=== PATIENT | male | born 1970 ===

== ENCOUNTER 2020-12-16 14:24 | Outpatient (REF) | payer OTHER, SELFPAY | END 2020-12-16 14:25 | disposition home or self-care (01) | LOC: HO.LAB 14:24 | PROVIDERS: Visit Provider Internal Medicine | DX: Z20.822 Contact with and (suspected) exposure to COVID-19 (principal) | CPT/HCPCS: 36415; C9803; U0003; U0005 ==

== ENCOUNTER 2021-09-25 19:21 | Outpatient (REF) | payer OTHER, SELFPAY ==
--- NOTE | ~2021-09-25 | MR_ITS ---
EXAMINATION: MR CERVICAL SPINE WITHOUT CONTRAST CLINICAL INFORMATION: 50-year-old with complaints of hand pain. Evaluate for stenosis, with bilateral mid to lower cervical nerve root impingement. COMPARISON: None TECHNIQUE: MRI of the cervical spine was obtained using routine sequences without contrast. FINDINGS: Alignment: The cervical spine is anatomically aligned. Lordotic curvature is maintained. Craniocervical Junction/C1-C2 Articulations: Intact and aligned. Visualized Intracranial Structures: Within normal limits. Vertebral Bodies: Normal height. Disc Spaces and Endplates: There is minor anterior marginal endplate spurring at C5-C6, with associated yiwc-yn-bdziefcc disc space height loss. Remaining intervertebral disc space heights are well maintained without significant spondylosis. Bone Marrow: Minimal type I degenerative marrow signal change seen along the endplates at C5-C6. Otherwise, bone marrow signal intensity is within normal limits. C2-C3: No disc herniation and no significant DJD, canal or neural foraminal stenosis. C3-C4: Minor left paramedian disc-osteophyte complex with mild flattening of the dural sac on the left without cord impingement or significant canal stenosis. There is uncovertebral spurring on the left with minor facet spurring and jiec-xq-bmhdnoht left-sided neural foraminal stenosis. C4-C5: Tiny central disc protrusion with minimal indentation of the ventral thecal sac noted without cord impingement or canal stenosis. There is minor uncinate process spurring bilaterally and minor facet spurring with mild bilateral neural foraminal stenosis. C5-C6: Broad-based disc protrusion asymmetric to the right with posterolateral disc-osteophyte complex and mild flattening of the dural sac with slight narrowing of the right lateral recess without significant central spinal canal stenosis. There is uncovertebral spurring bilaterally and facet hypertrophic change bilaterally with severe right-sided and moderate left-sided neural foraminal stenosis. C6-C7: Posterolateral disc-osteophyte complex asymmetric to the left with mild flattening of the dural sac without cord impingement or significant canal stenosis. There is uncovertebral spurring bilaterally and mild left-sided facet hypertrophic change, with lxrwhfzs-zb-xhjeuw left-sided and moderate right-sided neural foraminal stenosis. C7-T1: No disc herniation. Mild facet hypertrophic degenerative change bilaterally without significant canal or neural foraminal stenosis. The cervical and visualized upper thoracic spinal cord is normal in morphology, caliber and signal intensity. MR/MR cervical spine wo con IMPRESSION: 1. Normal spinal alignment. 2. Discogenic degenerative changes and mild spondylosis at C5-C6. 3. Multilevel posterior disc-osteophyte complexes and small disc protrusions, as described above, with no significant central spinal canal stenosis. There is mild narrowing of the left lateral recess at C6-C7 and mild narrowing of the right lateral recess at C5-C6. 4. Multilevel bilateral uncovertebral and facet degenerative change, with multilevel bilateral bony neural foraminal stenosis, most apparent on the right at C5-C6 and, to a lesser degree, on the left at C5-C6 and on the left at C6-C7.
== END 2021-09-25 19:22 | disposition home or self-care (01) ==
LOC: HO.MRI 19:21
PROVIDERS: Visit Provider Psychiatry & Neurology Neurology
DX: M54.12 Radiculopathy, cervical region (principal)
CPT/HCPCS: 72141

== ENCOUNTER 2021-10-27 14:35 | Outpatient (REF) | payer OTHER, SELFPAY ==
[2021-10-27 16:12] LABS: COVID-19 Test Negative (Negative); IDNOW Serial# 16C4AD1C
== END 2021-10-27 14:36 | disposition home or self-care (01) ==
LOC: HO.LAB 14:35
PROVIDERS: Visit Provider Internal Medicine
DX: Z20.822 Contact with and (suspected) exposure to COVID-19 (principal)
CPT/HCPCS: 36415; 87635; C9803

== ENCOUNTER → 2022-03-11 08:22 | Outpatient (RCR) | payer OTHER, SELFPAY | END | disposition home or self-care (01) | LOC: HO.PTCHIC 08-08 13:05 | PROVIDERS: PCP Internal Medicine; Visit Provider Student in an Organized Health Care Education/Training Program | DX: M25.562 Pain in left knee (principal); M25.561 Pain in right knee | CPT/HCPCS: 97110 ==

== ENCOUNTER 2022-11-23 12:08 | Outpatient (REF) | payer OTHER, SELFPAY ==
--- NOTE | ~2022-11-23 | XR_ITS ---
EXAMINATION: XR CHEST CLINICAL INFORMATION: Pleurodynia COMPARISON: 04/01/2017 TECHNIQUE: 2 views of the chest were obtained. FINDINGS: Lungs are clear. No focal consolidation or mass. Normal pulmonary vascularity. No pleural effusion or pneumothorax. Normal heart size. No acute osseous abnormality. XR/XR chest 2V IMPRESSION: No acute pulmonary disease.
[2022-11-23 14:12] LABS: Hematocrit 47.6 % (42.0-52.0); Hemoglobin 16.6 g/dl (14.0-18.0); Mean Corpuscular HGB Conc 34.9 g/dl (31.0-36.0); Mean Corpuscular Hemoglobin 31.6 pg (27.0-33.0); Mean Corpuscular Volume 90.5 fL (80.0-98.0); Mean Platelet Volume 9.1 fL (9.4-12.4); Platelet Count 199 X10*3/uL (160-400); Red Blood Count 5.26 X10*6/uL (4.60-5.80); Red Cell Distribution Width 12.2 % (11.0-16.0); White Blood Count 5.9 X10*3/uL (4.8-10.8)
[2022-11-23 14:19] LABS: Anion Gap 14 (12-20); Blood Urea Nitrogen 16 mg/dL (9-16); Calcium 9.5 mg/dL (8.4-10.2); Carbon Dioxide 27 mmol/L (22-29); Chloride 107 mmol/L (96-108); Estimated Glomerular Filt Rate > 60; Glucose Random 89 mg/dL (60-115); Potassium 4.5 mmol/L (3.3-5.1); Sodium 143 mmol/L (135-145)
== END 2022-11-23 12:09 | disposition home or self-care (01) ==
LOC: HO.HMGCX 12:08
PROVIDERS: PCP Internal Medicine; Visit Provider Emergency Medicine
DX: R10.9 Unspecified abdominal pain (principal); R07.81 Pleurodynia; R06.02 Shortness of breath; R53.83 Other fatigue
CPT/HCPCS: 36415; 71046; 80048; 84484; 85027

== ENCOUNTER 2023-04-23 09:01 | Outpatient (REF) | payer OTHER, SELFPAY ==
[2023-04-23 11:24] LABS: MANUAL DIFF FLAG NO
[2023-04-23 11:31] LABS: Appearance Urine Clear; Color Urine Yellow; Glucose Urine UA Negative (Negative); Leukocyte Esterase Urine Negative (Negative); Nitrite Urine Negative (Negative); PH 7.5 (5.0-9.0); Specific Gravity - Urine <= 1.005 (1.005-1.025); Urine Blood Negative (Negative); Urine Ketones Negative (Negative); Urine Protein Negative (Neg-Trace)
[2023-04-23 11:36] LABS: Basophils Percent Auto 0.4 % (0-2); Eosinophils Absolute Auto 0.1 X10*3/uL (0.0-0.4); Eosinophils Percent Auto 2.4 % (0-4); Hematocrit 44.7 % (42.0-52.0); Hemoglobin 16.4 g/dl (14.0-18.0); Imm Gran Abs Auto 0.01 X10*3/uL (0.00-0.03); Imm Gran Pct Auto 0.2 % (0.0-0.4); Lymphocytes Absolute Auto 1.1 X10*3/uL (1.2-4.9); Lymphocytes Percent Auto 24.6 % (20-40); Mean Corpuscular HGB Conc 36.7 g/dl (31.0-36.0); Mean Corpuscular Hemoglobin 32.9 pg (27.0-33.0); Mean Corpuscular Volume 89.6 fL (80.0-98.0); Mean Platelet Volume 9.5 fL (9.4-12.4); Monocytes Absolute Auto 0.4 X10*3/uL (0.1-1.2); Monocytes Percent Auto 8.7 % (2-11); Neutrophils Absolute Auto 2.9 x10*3/uL (2.0-8.3); Neutrophils Percent Auto 63.7 % (45-73); Platelet Count 178 X10*3/uL (160-400); Red Blood Count 4.99 X10*6/uL (4.60-5.80); Red Cell Distribution Width 12.2 % (11.0-16.0); White Blood Count 4.6 X10*3/uL (4.8-10.8)
[2023-04-23 12:03] LABS: Prostate Specific Antigen Scr 1.98 ng/mL (<0.05-4.0)
[2023-04-23 13:28] LABS: Alanine Aminotransferase 18 U/L (0-40); Alkaline Phosphatase 81 U/L (39-117); Anion Gap 13 (12-20); Aspartate Amino Transferase 18 U/L (5-37); Bilirubin Total 0.9 mg/dL (0.0-1.0); Blood Urea Nitrogen 12 mg/dL (9-16); Calcium 9.5 mg/dL (8.4-10.2); Carbon Dioxide 24 mmol/L (22-29); Chloride 108 mmol/L (96-108); Cholesterol 121 mg/dL; Estimated Glomerular Filt Rate > 60; Glucose Fasting 91 mg/dL (60-99); HDL Cholesterol 36 mg/dL; LDL Cholesterol Calculated 75 mg/dl; Potassium 3.7 mmol/L (3.3-5.1); Sodium 141 mmol/L (135-145); Total Protein 6.7 g/dL (6.5-8.0); Triglycerides 53 mg/dL
[2023-04-23 13:33] LABS: TSH reflex Free T4 0.88 uIU/mL (0.32-4.0); Vitamin D 25-OH Total 38.6 ng/mL (>30)
== END 2023-04-23 09:02 | disposition home or self-care (01) ==
LOC: HO.HMGCLDS 09:01
PROVIDERS: PCP Internal Medicine; Visit Provider Internal Medicine
DX: Z00.00 Encounter for general adult medical examination without abnormal findings (principal); Z12.5 Encounter for screening for malignant neoplasm of prostate; I10 Essential (primary) hypertension; E78.00 Pure hypercholesterolemia, unspecified; R30.0 Dysuria; E55.9 Vitamin D deficiency, unspecified
CPT/HCPCS: 36415; 80053; 80061; 81003; 82306; 84153; 84443; 85025

== ENCOUNTER 2023-04-27 15:18 | Outpatient (REF) | payer OTHER, SELFPAY ==
--- NOTE | ~2023-04-27 | XR_ITS ---
EXAMINATION: XR KNEE, LEFT CLINICAL INFORMATION: Pain in left knee COMPARISON: X-rays of the left knee July 2020 TECHNIQUE: Four views of the left knee. FINDINGS: Bone and joints normal. Persistent area of ossification posterior and lateral to the proximal fibula compatible with heterotopic ossification unchanged No effusion. XR/XR knee LT 4V IMPRESSION: 1. No acute abnormality. 2. Heterotopic ossification unchanged.
== END 2023-04-27 15:19 | disposition home or self-care (01) ==
LOC: HO.XRAY 15:18
PROVIDERS: PCP Internal Medicine; Visit Provider Internal Medicine
DX: M25.562 Pain in left knee (principal)
CPT/HCPCS: 73564

== ENCOUNTER 2023-06-19 12:44 | Outpatient (AMB) | payer OTHER, SELFPAY ==
--- NOTE | 2023-06-19 14:08 | MHC.OFFWIV ---
Intake Vital Signs 06/19/23 14:10 Height 5 ft 8 in BP 132/72 Blood Pressure Location Lt brachial Position Sitting Pulse 82 Pulse Source Pulse Oximeter Temp 97.9 F Temp Source Temporal Artery Scan Pulse Oximetry (%) 98 Intake Visit Reasons: EST/medication questions/[phone] Intake Note: pt is here for refill on medication Patient Tobacco Use Status: Former Tobacco user Allergies amoxicillin Allergy (Unknown, Verified 06/19/23 14:09) rash pollen extracts [POLLEN] Allergy (Unknown, Verified 06/19/23 14:09) RESPIRATORY HPI EST/medication questions/[phone] HPI Details Patient is a 52-year-old male who comes to the walk-in clinic requesting new prescription for his clonazepam. He sees psych provider who writes him for 1 mg of clonazepam twice a day, however he reports that his pharmacy is not able to fill this due to a shortage and requests a new prescription written, as it is a controlled substance. He takes this for apparent severe anxiety, and has history of bipolar depression. FORMERLY [facility] Medical History Bipolar depression Dyslipidemia Dyspnea Knee pain, bilateral Obesity (BMI 30-39.9) Obstructive sleep apnea Surgical History History of nasal surgery History of prostate surgery Status post phlebectomy Family History Father Medical history unknown Mother ALS (amyotrophic lateral sclerosis) Sister No problems noted. Social History Housing: Apartment Alcohol intake: former Patient Tobacco Use Status: Former Tobacco user e-Cigarette/Vaping Use: Never Used Second Hand Smoke Exposure: Yes service: No Current occupational status: disabled Cognitive needs: No Hearing needs: No Vision needs: No Review of Systems Const All systems reviewed & are unremarkable except as noted in HPI and below Physical Exam Vital Signs: Last Vital Signs Temp 97.9 F 06/19/23 14:10 Pulse 82 06/19/23 14:10 BP 132/72 06/19/23 14:10 Pulse Ox 98 06/19/23 14:10 Const General: cooperative, healthy appearing, comfortable, no acute distress, alert, awake, Physically active, anxious and well groomed; No diaphoretic, ill appearing, intoxicated appearing, poor hygiene or tired appearing Nutritional Appearance: average body habitus Orientation/consciousness: patient oriented x3 Limitations: no limitations Resp Effort & Inspection: normal respiratory effort Skin Other: Good color, warm and dry Neuro General: patient oriented x3 Psych Appearance: grossly normal Mental Status: mental status grossly normal Speech and movement: Normal speech and movement present Affect: normal affect Attitude: cooperative Thought process: Normal thought process present Insight: Good insight present (Psych) Judgement: Good judgement present (Psych) Assessment & Plan Assessment & Plan (1) Anxiety: Code(s): F41.9 - Anxiety disorder, unspecified Plan: Discussed with patient that I can do a short term fill of his prescription as after reviewing his profile in prescription management program, it has been a month since his last fill. I also reviewed his last primary care note with Dr. Crump which was 2 months ago, and he has this dosing as current and recommended to continue. Therefore I agreed to put in a 2 week refill for the patient of clonazepam 0.5mg BID as needed for severe anxiety. Medications: New clonazepam 1 mg (2 x 0.5 mg) PO BID 2 weeks 56 tabs 0RF Coding Level of Care Code Est Pt Level 3 (93792) Diagnoses Anxiety F41.9
[2023-06-19 14:10] VITALS: BP 132/72; PULSE 82; TEMP 36.6; O2SAT 98
== END 2023-06-19 15:04 | disposition home or self-care (01) ==
PROVIDERS: PCP Internal Medicine; Visit Provider Physician Assistant Medical
DX: F41.9 Anxiety disorder, unspecified (principal)
CPT/HCPCS: 99213

== ENCOUNTER 2024-04-28 13:35 | Outpatient (AMB) | payer OTHER, SELFPAY ==
[2024-04-28 13:41] VITALS: BP 140/76; PULSE 87; O2SAT 98; BMI 40.1
--- NOTE | 2024-04-28 13:41 | A.OFFPC_ITS ---
Vital Signs 04/28/24 13:41 Height 5 ft 8 in Weight 264 lb 0.2 oz BMI 40.1 BP 140/76 H Blood Pressure Location Lt brachial Position Sitting Pulse 87 Pulse Source Pulse Oximeter Pulse Oximetry (%) 98 Oxygen Delivery Method Room Air Intake Visit Reasons: Annual Exam Intake Note: Patient is here today for a physical. 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: No Was dental information given to patient?: Patient has dentist HPI Annual Exam HPI Details Patient comes in today for his annual physical examination States that he feels okay He denies any headaches or dizziness Denies any chest pains, no increased SOB No nausea/vomiting, no abdominal pain No change in bowel habits noted He denies any acute urinary symptoms He has no follow up labs done recently He has declined going for a screening colonoscopy in the past and continues to decline referral to get one done - states that he has reservations about the procedure itself as well as its accuracy FORMERLY [facility] Medical History (Updated 04/28/24 @ 14:58 by Nithin Crump MD) Morbid obesity with BMI of 40.0-44.9, adult Cervical spondylosis Dyspnea Knee pain, bilateral Obesity (BMI 30-39.9) Bipolar depression Obstructive sleep apnea Dyslipidemia Surgical History Status post phlebectomy History of nasal surgery History of prostate surgery Family History Father Medical history unknown Mother ALS (amyotrophic lateral sclerosis) Sister No problems noted. Social History Housing: Apartment Alcohol intake: former Patient Tobacco Use Status: Former Tobacco user e-Cigarette/Vaping Use: Never Used Second Hand Smoke Exposure: Yes service: No Current occupational status: disabled Cognitive needs: No Hearing needs: No Vision needs: No Questionnaire PHQ-9 Over the last 2 weeks, how often have you been bothered by any of the following problems? 1. Little interest or pleasure in doing things: not at all 2. Feeling down, depressed, or hopeless: not at all 3. Trouble falling or staying asleep, or sleeping too much: not at all 4. Feeling tired or having little energy: not at all 5. Poor appetite or overeating: not at all 6. Feeling bad about yourself - or that you are a failure or have let yourself or your family down: not at all 7. Trouble concentrating on things, such as reading the newspaper or watching television: not at all 8. Moving or speaking so slowly that other people could have noticed. Or the opposite - being so fidgety or restless that you have been moving around a lot more than usual: not at all 9. Thoughts that you would be better off or of hurting yourself in some way: not at all Total score: 0 Depression Screening Interpretation: Negative Depression Screening Done: Yes 42853 - PHQ-9 Billing: Yes Source: Developed by Drs. James Jalloh, Francine Landeros, Kaz Parker and colleagues, with an educational hannah from [email or web address] Thrive Questionnaire Date Thrive assessed: 04/28/24 I am a: Patient What is your living situation today?: I have a steady place to live Within the past 12 months, did the food you bought not last and you didn't have the money to get more?: Never true Within the past 12 months, did you worry whether your food would run out before you got money to buy more?: Never true Do you have trouble paying for medicines?: No Do you have trouble getting transportation to medical appointments?: No Do you have trouble paying your heating and electricity bill?: No Do you have trouble taking care of your child, family member or friend?: No Do you have trouble with day-to-day activities such as bathing, preparing meals, shopping, managing finances, etc.?: No Are you currently unemployed and looking for a job?: No Are you interested in more education?: No Currently or been in a relationship where the following occur: no concerns reported THRIVE Score: 0 AUDIT C Alcohol Use Questionnaire (AUDIT-C) 1. How often do you have a drink containing alcohol?: Never 3. How often do you have six or more drinks on one occasion?: Never Total Score: 0 Score Reviewed/Action Taken: Yes MAGALY-7 AMB Questionnaire MAGALY-7 Date MAGALY - 7 assessed: 04/28/24 Feeling nervous, anxious, or on edge: 0 = Not at all Not being able to stop or control worryin = Not at all Worrying too much about different things: 0 = Not at all Trouble relaxin = Not at all Being so restless that it is hard to sit still: 0 = Not at all Becoming easily annoyed or irritable: 0 = Not at all Feeling afraid as if something awful might happen: 0 = Not at all Total MAGALY-7 score (0-4 normal; 5-9 mild; 10-14 moderate; 15-21 severe): 0 Source: Developed by Drs. James Jalloh, Francine Landeros, Kaz Parker and colleagues, with an educational hannah from [email or web address] Review of Systems Const Denies chills, Denies fatigue, Denies fever(s), Denies headache(s), Denies malaise and Denies weakness Eyes Denies blurry vision, Denies change in vision, Denies irritation and Denies itchy eyes ENT Denies dysphagia, Denies dizziness, Denies otalgia, Denies headache(s), Denies nasal congestion, Denies neck pain, Denies odynophagia and Denies sore throat Card Denies chest pain, Denies rapid heart rate, Denies irregular heart rhythm, Denies palpitations and Reports dyspnea on exertion (mild) Resp Denies chest congestion, Denies cough, Reports dyspnea on exertion (mild) and Denies wheezing GI Denies abdominal pain, Denies bloating, Denies constipation, Denies dysphagia, Denies heartburn, Denies diarrhea, Denies nausea, Denies odynophagia and Denies vomiting Denies hematuria, Denies difficulty urinating, Denies dysuria, Denies urinary frequency and Denies urinary urgency Musc Denies back pain, Denies arthralgias, Denies joint swelling, Denies muscle weakness and Denies neck pain Skin/Breast Denies change in pigmentation, Denies lesions, Denies rash and Denies unusual bruising Neuro Denies dizziness, Denies headache(s), Denies paresthesias and Denies weakness Endo Denies fatigue and Denies palpitations Aller/Immun Denies itchy eyes and Denies wheezing Physical exam (Primary Care) Vital Signs: Last Vital Signs Pulse 87 04/28/24 13:41 BP 140/76 H 04/28/24 13:41 Pulse Ox 98 04/28/24 13:41 Oxygen Delivery Method Room Air 04/28/24 13:41 BMI result Body Mass Index 40.1 Tobacco/Smoking Status: Tobacco use Status Tobacco use date assessed 04/28/24 04/28/24 13:42 Patient Tobacco Use Status Former Tobacco user 04/28/24 13:42 e-Cigarette/Vaping Use Never Used 04/28/24 13:42 PHQ-9: PHQ-9 Score PHQ-9: Total score 0 04/28/24 14:49 Depression Screening Interpretation: Negative Thrive Assessment: Date of Thrive Assessment Date Thrive assessed 04/28/24 04/28/24 13:42 Currently or been in a relationship where the following occur: no concerns reported Const General: no acute distress, alert and awake Orientation/consciousness: patient oriented x3 HENMT Head: Yes normocephalic and Yes atraumatic Ears: external ears normal, TM's normal bilaterally and EAC's normal General nose exam: No nasal discharge present Face and sinus: Yes normal facial exam and Yes sinuses nontender Teeth and gingiva: dentition normal Throat: Yes posterior oropharynx normal and Yes tonsils normal (no TP congestion) Eyes Eyelids: Yes eyelids normal Conjunctivae: conjunctivae normal Pupils: Equal, round and reactive pupils present EOM: EOMs intact bilaterally Neck Neck: Yes no lymphadenopathy and Yes supple Thyroid: Thyroid normal Resp Auscultation: clear to auscultation bilaterally, no rales and no wheezes Cardio Rate: regular rate Rhythm: regular rhythm Heart sounds: no murmurs GI Palpation (GI): Soft to palpation, nontender and No hepatosplenomegaly present Auscultation: normal bowel sounds General: Yes no CVA tenderness Back/Spine/Pelvis Back: no CVA tenderness Thoracic/Lumbar Spine: thoracic and lumbar spine normal to inspection Skin Lesions: no lesions Rashes: no rashes Neuro General: patient oriented x3, moves all extremities, no focal motor deficits and CN's II-XI intact bilaterally Cranial nerves: Yes Equal, round and reactive pupils present Cognition (Neuro): normal cognition Gait exam (Neuro): Normal gait present Extrem General: Yes no clubbing, cyanosis or edema Assessment and Plan Assessment & Plan (1) Annual physical exam: Code(s): Z00.00 - Encounter for general adult medical examination without abnormal findings Plan: Check labs (2) Cervical spondylosis: Code(s): M47.812 - Spondylosis without myelopathy or radiculopathy, cervical region Plan: Cervical spine MRI done in 09/2021 revealed (+) multilevel degenerative disc disease with facet joint arthropathy and mild to moderate foraminal narrowing at C5-C6 and C6-C7 levels Patient states that he has been able to manage his neck pain so far and does not need to take anything for pain other than OTC pain meds PRN (3) Neuropathy: Code(s): G62.9 - Polyneuropathy, unspecified Plan: Was seen by neurology in May 2022 and advised that his symptoms are likely related to his cervical spine issues - has cervical spondylosis Cervical spine MRI done in 09/2021 revealed (+) multilevel degenerative disc disease with facet joint arthropathy and mild to moderate foraminal narrowing at C5-C6 and C6-C7 levels EMG and NCV of the upper extremities done back on 08/04/2021 revealed 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, with normal EMG in the right C5-T1 innervated muscles Follow up with neurology as scheduled (4) Dyspnea on exertion: Code(s): R06.09 - Other forms of dyspnea Plan: Is most likely multifactorial, including related to his weight as well as his DARRYL, which he has decided not to treat with CPAP States that his SOB/MYERS have improved somewhat over the past few months EKG done at the walk-in clinic a few months ago was normal, chest x-rays came out normal and his recent labs done showed no acute or concerning issues If symptoms persist or progress, can send him for echocardiogram for further evaluation but advised that he presently has no signs of fluid or volume overload on physical exam and echo will most likely also come out normal Patient states that he is continuing to work on his weight and is hoping that his symptoms will improve with some weight loss (5) Obstructive sleep apnea: Code(s): G47.33 - Obstructive sleep apnea (adult) (pediatric) Plan: Home sleep study done a few years ago showed (+) mild DARRYL and lowest oxygen level at night was at 87% Auto-CPAP trial at home was recommended but patient decided not to pursue this - wanted to try losing weight and have this reassessed later on when he is able to get his weight down significantly (6) Bipolar depression: Code(s): F31.9 - Bipolar disorder, unspecified Plan: Continue Seroquel 200 mg BID, Lamictal, 200 mg BID, Clonazepam 1 mg BID and Hydroxyzine 25 mg PRN Follow up with psychiatry as scheduled (7) Morbid obesity with BMI of 40.0-44.9, adult: Code(s): E66.01 - Morbid (severe) obesity due to excess calories; Z68.41 - Body mass index [BMI] 40.0-44.9, adult Plan: Reinforced diet/exercise as tolerated/lose weight (8) Colon cancer screening: Code(s): Z12.11 - Encounter for screening for malignant neoplasm of colon Plan: Patient again declines offer to refer him to GI for screening colonoscopy BUT agrees to doing Cologuard testing if it is approved by his insurance - Cologuard testing ordered again Plan Follow up in 6 months Orders: Orders Comprehensive [place]. Panel Fast 04/28/24 E78.00 - Pure hypercholesterolemia, unspecified, Z00.00 - Encounter for general adult medical examination without abnormal findings Vitamin D 25-OH Total 04/28/24 E55.9 - Vitamin D deficiency, unspecified, Z 00.00 - Encounter for general adult medical examination without abnormal findings Prostate Specific Antigen Scr 04/28/24 Z00.00 - Encounter for general adult medical examination without abnormal findings Complete Blood Count Auto Diff 04/28/24 D64.9 - Anemia, unspecified, Z00.00 - Encounter for general adult medical examination without abnormal findings Lipid Panel 04/28/24 E78.00 - Pure hypercholesterolemia, unspecified, Z00.00 - Encounter for general adult medical examination without abnormal findings TSH reflex Free T4 04/28/24 E78.00 - Pure hypercholesterolemia, unspecified, Z00.00 - Encounter for general adult medical examination without abnormal findings UA CC w/rflx Micro + Cult 04/28/24 R30.0 - Dysuria, Z00.00 - Encounter for general adult medical examination without abnormal findings Referrals Cologuard Test Z12.11 - Encounter for screening for malignant neoplasm of colon, Z12.12 - Encounter for screening for malignant neoplasm of rectum Coding Level of Care Code Est Pt Prev Care 40-64y(09501) Diagnoses Annual physical exam Z00.00 Cervical spondylosis M47.812 Neuropathy G62.9 Dyspnea on exertion R06.09 Obstructive sleep apnea G47.33 Bipolar depression F31.9 Morbid obesity with BMI of 40.0-44.9, adult E66.01; Z68.41 Colon cancer screening Z12.11
== END 2024-04-28 15:03 | disposition home or self-care (01) ==
PROVIDERS: PCP Internal Medicine; Visit Provider Internal Medicine
DX: Z00.00 Encounter for general adult medical examination without abnormal findings (principal); F31.9 Bipolar disorder, unspecified; E66.01 Morbid (severe) obesity due to excess calories; Z68.41 Body mass index [BMI] 40.0-44.9, adult; M47.812 Spondylosis without myelopathy or radiculopathy, cervical region; G62.9 Polyneuropathy, unspecified; R06.09 Other forms of dyspnea; G47.33 Obstructive sleep apnea (adult) (pediatric); Z12.11 Encounter for screening for malignant neoplasm of colon
CPT/HCPCS: 99396

== ENCOUNTER 2024-08-22 11:17 | Outpatient (REF) | payer OTHER, SELFPAY ==
--- NOTE | ~2024-08-22 | XR_ITS ---
EXAMINATION: XR CHEST 2 VIEWS CLINICAL INFORMATION: Other specified respiratory disorders J98.8. COMPARISON: XR Chest 11/23/2022 TECHNIQUE: 2 views of the chest were obtained. FINDINGS: No significant abnormality is noted involving the heart, lungs, mediastinum, bony thorax or soft tissues. XR/XR chest 2V IMPRESSION: Unremarkable examination. Electronically signed by: Lee Limon MD 10/24/2024 09:43 AM [facility] [place]
== END 2024-08-22 11:18 | disposition home or self-care (01) ==
LOC: HO.XRAY 11:17
PROVIDERS: PCP Internal Medicine; Visit Provider Internal Medicine
DX: J98.8 Other specified respiratory disorders (principal)
CPT/HCPCS: 71046

== ENCOUNTER 2024-09-04 11:12 | Outpatient (AMB) | payer OTHER, SELFPAY ==
--- NOTE | 2024-09-04 12:04 | MHC.OFFWIV ---
Intake Vital Signs 09/04/24 12:14 Height 5 ft 8 in Weight 270 lb BMI 41.0 BP 140/90 H Blood Pressure Location Rt brachial Position Sitting Pulse 98 Pulse Source Pulse Oximeter Temp 97.8 F Temp Source Oral Pulse Oximetry (%) 97 Oxygen Delivery Method Room Air Intake Visit Reasons: EP weird taste in the mouth, stomach pain [phone] Intake Note: Patient here for weird taste in mouth (metallic) and stomach pain that has been present for about 3 weeks. Patient Tobacco Use Status: Former Tobacco user Allergies amoxicillin Allergy (Unknown, Verified 09/04/24 12:05) rash pollen extracts [POLLEN] Allergy (Unknown, Verified 09/04/24 12:05) RESPIRATORY Do you need a note to return to daycare/school/sports/work: No HPI EP weird taste in the mouth, stomach pain [phone] HPI Details This note is constructed using voice recognition software. While every effort has been made to ensure accuracy, rotary filter operator errors may have been included. The patient is a 53 year old male who presents to the clinic today with metallic taste in his mouth for the past 3-4 weeks. He notes that he has been seen in the emergency room twice, and they have focused primarily in on his respiratory status and have perform chest x-rays without identifying source. He denies fever, chills, cough, shortness of breath, changes in his stool pattern. He reports that he has gained approximately 50 lb in the last year. [facility] Medical History (Updated 04/28/24 @ 14:58 by Nithin Crump MD) Morbid obesity with BMI of 40.0-44.9, adult Cervical spondylosis Dyspnea Knee pain, bilateral Obesity (BMI 30-39.9) Bipolar depression Obstructive sleep apnea Dyslipidemia Surgical History Status post phlebectomy History of nasal surgery History of prostate surgery Family History Father Medical history unknown Mother ALS (amyotrophic lateral sclerosis) Sister No problems noted. Social History Housing: Apartment Alcohol intake: former Patient Tobacco Use Status: Former Tobacco user e-Cigarette/Vaping Use: Never Used Second Hand Smoke Exposure: Yes service: No Current occupational status: disabled Cognitive needs: No Hearing needs: No Vision needs: No Review of Systems Const All systems reviewed & are unremarkable except as noted in HPI and below Physical Exam Vital Signs: Last Vital Signs Temp 97.8 F 09/04/24 12:14 Pulse 98 09/04/24 12:14 BP 140/90 H 09/04/24 12:14 Pulse Ox 97 09/04/24 12:14 Oxygen Delivery Method Room Air 09/04/24 12:14 BMI result Body Mass Index 41.0 Const General: cooperative, healthy appearing, comfortable, no acute distress and well developed Orientation/consciousness: patient oriented x3 Limitations: no limitations HEENT Other: Posterior pharynx with erythema and signs of acid erosion Head: Yes normal to inspection Ears: hearing grossly normal bilaterally, external ears normal and TM's normal bilaterally General nose exam: Normal external nose present and Normal nares present Face and sinus: Yes normal facial exam and Yes sinuses nontender Mouth: Normal oral and palatal mucosa present Neck Neck: Yes normal visual inspection Resp Effort & Inspection: normal respiratory effort and able to speak in complete sentences Auscultation: clear to auscultation bilaterally Cardio Jugular venous distension: no JVD Rate: regular rate Rhythm: regular rhythm Heart sounds: S1 normal heart sound present, S2 normal heart sound present and normal S1 and S2 GI Inspection: Yes normal to inspection Palpation (GI): Soft to palpation and Tenderness to palpation present (GI) in the epigastrum Percussion: Yes normal to percussion Auscultation: normal bowel sounds Skin General skin exam: no rashes or lesions noted Neuro General: patient oriented x3 Psych Appearance: grossly normal Attitude: cooperative Assessment & Plan Assessment & Plan (1) Acid reflux: Code(s): K21.9 - Gastro-esophageal reflux disease without esophagitis Qualifiers: Esophagitis presence: without esophagitis Qualified Code(s): K21.9 - Gastro-esophageal reflux disease without esophagitis Plan: Advised avoidance acidic foods, carbonated beverages, large meals, or anything to eat or drink within 2-3 hours of lying down. Consider trial famotidine for at least 2 weeks, for symptomatic management and then p.r.n. after that. Advised patient to follow up worsening or failure to resolve. Plan See above for full details and plan. Medications: New famotidine Take at dinner time 20 mg PO DAILY 30 tabs 0RF 30 days Coding Level of Care Code Est Pt Level 3 (72413) Diagnoses Gastroesophageal reflux disease without esophagitis K21.9 Esophagitis presence: without esophagitis
[2024-09-04 12:14] VITALS: BP 140/90; PULSE 98; TEMP 36.6; O2SAT 97; BMI 41.0
== END 2024-09-04 12:59 | disposition home or self-care (01) ==
PROVIDERS: PCP Internal Medicine; Visit Provider Registered Nurse
DX: K21.9 Gastro-esophageal reflux disease without esophagitis (principal)

== ENCOUNTER → 2024-09-04 11:12 | Outpatient (BNVA) | payer OTHER, SELFPAY | PROVIDERS: PCP Internal Medicine; Visit Provider Registered Nurse | DX: K21.9 Gastro-esophageal reflux disease without esophagitis (principal) | CPT/HCPCS: 99212 ==

== ENCOUNTER 2024-09-19 10:50 | Outpatient (AMB) | payer OTHER, SELFPAY ==
[2024-09-19 10:59] VITALS: BP 136/84; PULSE 84; O2SAT 99; BMI 41.8
--- NOTE | 2024-09-19 10:59 | MHC.PC.OV ---
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 Television Required: No Accompanied by: Self / Same As Patient Allergies amoxicillin Allergy (Unknown, Verified 09/19/24 11:30) rash pollen extracts [POLLEN] Allergy (Unknown, Verified 09/19/24 11:30) RESPIRATORY Medication List - Last Reconciled 09/19/24 by Nithin Crump MD famotidine 20 mg PO DAILY 30 days lamotrigine 200 mg PO BID quetiapine 200 mg PO BID Tobacco use date assessed: 09/19/24 Dental Screening Dental Screen Date: 09/19/24 Did you have a dental visit in the last 12 months?: No Did you have a dental problem in the last 6 months where you did not have access to dental care?: No Was dental information given to patient?: Patient has dentist HPI Leg pain HPI Details Patient comes in today complaining of some vague symptoms lately that he states are bothering him a lot States that he went to the walk-in clinic last month after he started experiencing some recurrent weird taste in his mouth recently that he can only describe as foamy He was started on a trial of oral Famotidine - states that he took a total of 5 doses of the medication, after which he somehow lost the bottle of med so has not been taking the Rx since States that he could not tell whether the Famotidine helped with his symptoms or not He then went to the ER in [place] ([facility]) - relates that they mary some labs to check for possible exposure to some unspecified chemicals(?) and he was informed that all of his labs came out okay and he was eventually reassured and sent home States that he was not reassured as his symptoms persisted and he feels that he may have had some transference of some unnamed chemicals from his pillows or during some of his daily activities but he continues to remain very vague and cannot really explain what it is he is really worried about He just keeps saying that it's hard to explain and could not provide more details to back up his suspicions or concerns Relates that he has been supposedly breaking out in sweats, experiencing on and off runs of irregular heartbeats, and that his legs are bothering him at times He denies any fever or chills Denies any headaches or dizziness Denies any exertional chest pains or increased shortness of breath No nausea/vomiting, no abdominal pain No change in bowel habits noted [facility] Medical History Morbid obesity with BMI of 40.0-44.9, adult Cervical spondylosis Dyspnea Knee pain, bilateral Obesity (BMI 30-39.9) Bipolar depression Obstructive sleep apnea Dyslipidemia Surgical History Status post phlebectomy History of nasal surgery History of prostate surgery Family History Father Medical history unknown Mother ALS (amyotrophic lateral sclerosis) Sister No problems noted. Social History Housing: Apartment Alcohol intake: former Patient Tobacco Use Status: Former Tobacco user e-Cigarette/Vaping Use: Never Used Second Hand Smoke Exposure: Yes service: No Current occupational status: disabled Cognitive needs: No Hearing needs: No Vision needs: No Questionnaire PHQ-9 Over the last 2 weeks, how often have you been bothered by any of the following problems? 1. Little interest or pleasure in doing things: not at all 2. Feeling down, depressed, or hopeless: not at all 3. Trouble falling or staying asleep, or sleeping too much: not at all 4. Feeling tired or having little energy: not at all 5. Poor appetite or overeating: not at all 6. Feeling bad about yourself - or that you are a failure or have let yourself or your family down: not at all 7. Trouble concentrating on things, such as reading the newspaper or watching television: not at all 8. Moving or speaking so slowly that other people could have noticed. Or the opposite - being so fidgety or restless that you have been moving around a lot more than usual: not at all 9. Thoughts that you would be better off or of hurting yourself in some way: not at all Total score: 0 Depression Screening Interpretation: Negative Depression Screening Done: Yes 19028 - PHQ-9 Billing: Yes Source: Developed by Francine Garcia, Kaz Parker and colleagues, with an educational hannah from [employer]. Thrive Questionnaire Date Thrive assessed: 09/19/24 I am a: Patient What is your living situation today?: I have a steady place to live Within the past 12 months, did the food you bought not last and you didn't have the money to get more?: Never true Within the past 12 months, did you worry whether your food would run out before you got money to buy more?: Never true Do you have trouble paying for medicines?: No Do you have trouble getting transportation to medical appointments?: No Do you have trouble paying your heating and electricity bill?: No Do you have trouble taking care of your child, family member or friend?: No Do you have trouble with day-to-day activities such as bathing, preparing meals, shopping, managing finances, etc.?: No Are you currently unemployed and looking for a job?: No Are you interested in more education?: No Please select the resources that you would like help with: None Currently or been in a relationship where the following occur: No concerns reported THRIVE Score: 0 AUDIT C Alcohol Use Questionnaire (AUDIT-C) 1. How often do you have a drink containing alcohol?: Never 3. How often do you have six or more drinks on one occasion?: Never Total Score: 0 Score Reviewed/Action Taken: Yes MAGALY-7 AMB Questionnaire MAGALY-7 Date MAGALY - 7 assessed: 09/19/24 Feeling nervous, anxious, or on edge: 0 = Not at all Not being able to stop or control worryin = Not at all Worrying too much about different things: 0 = Not at all Trouble relaxin = Not at all Being so restless that it is hard to sit still: 0 = Not at all Becoming easily annoyed or irritable: 0 = Not at all Feeling afraid as if something awful might happen: 0 = Not at all Total MAGALY-7 score (0-4 normal; 5-9 mild; 10-14 moderate; 15-21 severe): 0 Source: Developed by Francine Garcia Kurt Kroenke and colleagues, with an educational hannah from [employer]. Review of Systems Const Reports as per HPI, Denies chills, Denies fatigue, Denies fever(s) and Denies headache(s) ENT Details: as per HPI - has recurrent weird taste in mouth - foamy Denies dysphagia, Denies dizziness, Reports dry mouth (with recurrent weird tastes in his mouth often), Denies otalgia, Denies headache(s), Denies neck pain, Denies odynophagia and Denies sore throat Card Denies chest pain, Reports irregular heart rhythm (on and off, per patient), Denies palpitations and Reports dyspnea on exertion (mild) Resp Denies chest congestion, Denies cough and Reports dyspnea on exertion (mild) GI Denies abdominal pain, Denies constipation, Denies dysphagia, Denies heartburn, Denies diarrhea, Denies nausea, Denies odynophagia and Denies vomiting Denies difficulty urinating, Denies dysuria, Denies urinary frequency and Denies urinary urgency Musc Details: achy legs Denies back pain, Denies arthralgias and Denies neck pain Skin/Breast Denies rash Neuro Denies dizziness, Denies headache(s) and Denies paresthesias Psych Reports anxiety and Reports paranoia Endo Denies fatigue and Denies palpitations Physical exam (Primary Care) Vital Signs: Last Vital Signs Pulse 84 09/19/24 10:59 BP 136/84 09/19/24 10:59 Pulse Ox 99 09/19/24 10:59 Oxygen Delivery Method Room Air 09/19/24 10:59 BMI result Body Mass Index 41.8 Tobacco/Smoking Status: Tobacco use Status Tobacco use date assessed 09/19/24 09/19/24 11:04 Patient Tobacco Use Status Former Tobacco user 09/19/24 11:04 e-Cigarette/Vaping Use Never Used 09/19/24 11:04 PHQ-9: PHQ-9 Score PHQ-9: Total score 0 09/19/24 11:34 Depression Screening Interpretation: Negative Thrive Assessment: Date of Thrive Assessment Date Thrive assessed 09/19/24 09/19/24 11:04 Currently or been in a relationship where the following occur: No concerns reported Const General: no acute distress and alert HENMT Ears: TM's normal bilaterally and EAC's normal Throat: Yes posterior oropharynx normal and Yes tonsils normal (no TP congestion) Neck Neck: Yes no lymphadenopathy and Yes supple Thyroid: Thyroid normal Resp Auscultation: clear to auscultation bilaterally, no rales and no wheezes Cardio Rate: regular rate Rhythm: regular rhythm Heart sounds: no murmurs GI Palpation (GI): Soft to palpation and nontender Auscultation: normal bowel sounds General: Yes no CVA tenderness Back/Spine/Pelvis Back: no CVA tenderness Thoracic/Lumbar Spine: thoracic and lumbar spine normal to inspection Skin Rashes: no rashes Extrem General: Yes no clubbing, cyanosis or edema Office Procedures Flu Questionnaire Does the patient have a severe egg allergy?: No Immunizations Fluarix Triv [id number] (PF) 45 mcg (15 mcg x 3)/0.5 mL IM syringe Performing Provider: Nithin Crump MD [facility] Documented (not given) by: JACKI Murphy on 09/19/24 11:07 Reason Not Given: Received Previously Coding Level of Care Code Est Pt Level 4 (66295) Diagnoses Altered taste R43.2 Additional Codes PHQ-9 - 47613 - PHQ-9 Billing: Yes ([id number]) Assessment & Plan Assessment & Plan (1) Altered taste: Code(s): R43.2 - [facility] Category: Medical Plan: Have advised patient that from his physical examination today, I could not find any positive or pertinent findings that would help explain his described symptoms, which are very vague begin with and do not appear to have any physical basis While it may be possible, it is unlikely that he may be developing some rheumatologic condition or inflammatory/immunologic disease as he has hardly had any symptoms related to these He seems very concerned about the possibility of chemical exposure but the ones he described are quite vague and unlikely Have explained to patient that in the absence of any pertinent findings, we do not really know where to go in terms of testing him, I will go ahead and send him for some screening labs to see what we can come up with and have advised patient that hopefully, something will come up on his labs that will help narrow down what we are looking for Plan Follow up as scheduled next month Orders: Orders TSH reflex Free T4 09/19/24 E78.00 - Pure hypercholesterolemia, unspecified Vitamin D 25-OH Total 09/19/24 E55.9 - Vitamin D deficiency, unspecified Lamotrigine Lamictal 09/19/24 F31.9 - Bipolar disorder, unspecified OLAF Reflex Titer and Pattern 09/19/24 R68.2 - Dry mouth, unspecified Rheumatoid Factor 09/19/24 R68.2 - Dry mouth, unspecified Influenza [id number] Immunization 09/19/24 Z23 - Encounter for immunization Complete Blood Count Auto Diff 09/19/24 D64.9 - Anemia, unspecified Comprehensive [place]. Panel Fast 09/19/24 E78.00 - Pure hypercholesterolemia, unspecified Lipid Panel 09/19/24 E78.00 - Pure hypercholesterolemia, unspecified UA CC w/rflx Micro + Cult 09/19/24 R30.0 - Dysuria C Reactive Protein 09/19/24 R68.2 - Dry mouth, unspecified Complement C3 09/19/24 R68.2 - Dry mouth, unspecified Complement C4 09/19/24 R68.2 - Dry mouth, unspecified SARS COV2 IgG Today R43.2 - [place], Z20.822 - Contact with and (suspected) exposure to COVID-19
== END 2024-09-19 11:46 | disposition home or self-care (01) ==
PROVIDERS: PCP Internal Medicine; Visit Provider Internal Medicine
DX: R43.2 Parageusia (principal)

== ENCOUNTER → 2024-09-19 10:50 | Outpatient (BNVA) | payer OTHER, SELFPAY | PROVIDERS: PCP Internal Medicine; Visit Provider Internal Medicine | DX: R43.2 Parageusia (principal) | CPT/HCPCS: 90471; 96127; 99212 ==

== ENCOUNTER 2024-09-27 09:39 | Outpatient (REF) | payer OTHER, SELFPAY ==
[2024-09-27 13:17] LABS: MANUAL DIFF FLAG NO
[2024-09-27 13:18] LABS: Appearance Urine Clear; Color Urine Yellow; Glucose Urine UA Negative (Negative); Leukocyte Esterase Urine Negative (Negative); Nitrite Urine Negative (Negative); Specific Gravity - Urine <= 1.005 (1.005-1.025); Urine Blood Negative (Negative); Urine Ketones Negative (Negative); Urine Protein Negative (Neg-Trace)
[2024-09-27 13:33] LABS: Basophils Percent Auto 0.4 % (0-2); Eosinophils Absolute Auto 0.2 X10*3/uL (0.0-0.4); Eosinophils Percent Auto 3.4 % (0-4); Hematocrit 44.4 % (42.0-52.0); Hemoglobin 15.8 g/dl (14.0-18.0); Imm Gran Abs Auto 0.01 X10*3/uL (0.00-0.03); Imm Gran Pct Auto 0.2 % (0.0-0.4); Lymphocytes Percent Auto 21.9 % (20-40); Mean Corpuscular HGB Conc 35.6 g/dl (31.0-36.0); Mean Corpuscular Hemoglobin 31.9 pg (27.0-33.0); Mean Corpuscular Volume 89.5 fL (80.0-98.0); Mean Platelet Volume 8.9 fL (9.4-12.4); Monocytes Absolute Auto 0.4 X10*3/uL (0.1-1.2); Monocytes Percent Auto 8.4 % (2-11); Neutrophils Absolute Auto 3.1 x10*3/uL (2.0-8.3); Neutrophils Percent Auto 65.7 % (45-73); Platelet Count 178 X10*3/uL (160-400); Red Blood Count 4.96 X10*6/uL (4.60-5.80); Red Cell Distribution Width 12.8 % (11.0-16.0); White Blood Count 4.7 X10*3/uL (4.8-10.8)
[2024-09-27 13:39] LABS: Rheumatoid Factor < 13.0 IU/mL (<15.0)
[2024-09-27 14:02] LABS: Alanine Aminotransferase 26 U/L (0-40); Albumin Level 4.3 g/dL (3.5-5.0); Alkaline Phosphatase 85 U/L (39-117); Anion Gap 11 (12-20); Aspartate Amino Transferase 30 U/L (5-37); Bilirubin Total 0.6 mg/dL (0.0-1.0); Blood Urea Nitrogen 10 mg/dL (9-16); C Reactive Protein 0.12 mg/dL (< or = 0.50); Carbon Dioxide 26 mmol/L (22-29); Chloride 106 mmol/L (96-108); Cholesterol 132 mg/dL (<200); Estimated Glomerular Filt Rate > 60; Glucose Fasting 97 mg/dL (60-99); HDL Cholesterol 36 mg/dL (>40); LDL Cholesterol Calculated 77 mg/dL (<100); Potassium 3.9 mmol/L (3.3-5.1); Sodium 139 mmol/L (135-145); Total Protein 6.9 g/dL (6.5-8.0); Triglycerides 98 mg/dL (<150)
[2024-09-27 14:04] LABS: TSH reflex Free T4 1.11 uIU/mL (0.32-4.0); Vitamin D 25-OH Total 55.1 ng/mL (>30)
[2024-09-28 19:53] LABS: Complement C3 145 mg/dL (82-185)
[2024-10-02 14:24] LABS: Anti Nuclear Antibody Screen POSITIVE (NEGATIVE)
[2024-10-03 17:54] LABS: Lamotrigine Lamictal 5.3 mcg/mL (2.5-15.0)
== END 2024-09-27 09:40 | disposition home or self-care (01) ==
LOC: HO.HMGCLDS 09:39
PROVIDERS: PCP Internal Medicine; Visit Provider Internal Medicine
DX: E78.00 Pure hypercholesterolemia, unspecified (principal); E55.9 Vitamin D deficiency, unspecified; R68.2 Dry mouth, unspecified; R30.0 Dysuria; F31.9 Bipolar disorder, unspecified; D64.9 Anemia, unspecified
CPT/HCPCS: 36415; 80053; 80061; 80175; 81003; 82306; 84443; 85025; 86038; 86039; 86140; 86160; 86431

== ENCOUNTER 2025-03-01 11:08 | Outpatient (AMB) | payer OTHER, SELFPAY ==
[2025-03-01 11:09] VITALS: BP 120/86; PULSE 90; O2SAT 96; BMI 43.1
--- NOTE | 2025-03-01 11:09 | A.OFFPC_ITS ---
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 Required: No Accompanied by: Self / Same As Patient Allergies amoxicillin Allergy (Unknown, Verified 03/01/25 11:43) rash pollen extracts [POLLEN] Allergy (Unknown, Verified 03/01/25 11:43) RESPIRATORY Medication List - Last Reconciled 03/01/25 by Nithin Crump MD famotidine 20 mg PO DAILY 30 days lamotrigine 200 mg PO BID quetiapine 200 mg PO BID Tobacco use date assessed: 03/01/25 Dental Screening Dental Screen Date: 03/01/25 Did you have a dental visit in the last 12 months?: Yes Did you have a dental problem in the last 6 months where you did not have access to dental care?: No Was dental information given to patient?: Patient has dentist HPI F/U 3 month HPI Details Patient comes in today for his follow up visit States that he feels okay He denies any headaches or dizziness Denies any chest pains, no SOB No nausea/vomiting, no abdominal pain No change in bowel habits noted He does not have any follow up labs done recently; his labs were last done back in September 2024 [facility] Medical History Morbid obesity with BMI of 40.0-44.9, adult Cervical spondylosis Dyspnea Knee pain, bilateral Obesity (BMI 30-39.9) Bipolar depression Obstructive sleep apnea Dyslipidemia Surgical History Status post phlebectomy History of nasal surgery History of prostate surgery Family History Father Medical history unknown Mother ALS (amyotrophic lateral sclerosis) Sister No problems noted. Social History Housing: Apartment Alcohol intake: former Patient Tobacco Use Status: Former Tobacco user e-Cigarette/Vaping Use: Never Used Second Hand Smoke Exposure: Yes service: No Current occupational status: disabled Cognitive needs: No Hearing needs: No Vision needs: No Questionnaire PHQ-9 Over the last 2 weeks, how often have you been bothered by any of the following problems? 1. Little interest or pleasure in doing things: not at all 2. Feeling down, depressed, or hopeless: not at all 3. Trouble falling or staying asleep, or sleeping too much: not at all 4. Feeling tired or having little energy: not at all 5. Poor appetite or overeating: not at all 6. Feeling bad about yourself - or that you are a failure or have let yourself or your family down: not at all 7. Trouble concentrating on things, such as reading the newspaper or watching television: not at all 8. Moving or speaking so slowly that other people could have noticed. Or the opposite - being so fidgety or restless that you have been moving around a lot more than usual: not at all 9. Thoughts that you would be better off or of hurting yourself in some way: not at all Total score: 0 Depression Screening Interpretation: Negative Depression Screening Done: Yes 03745 - PHQ-9 Billing: Yes Source: Developed by Drs. James Jalloh, Francine Landeros, Kaz Parker and colleagues, with an educational hannah from [employer]. Thrive Questionnaire Date Thrive assessed: 03/01/25 I am a: Patient What is your living situation today?: I have a steady place to live Within the past 12 months, did the food you bought not last and you didn't have the money to get more?: Never true Within the past 12 months, did you worry whether your food would run out before you got money to buy more?: Never true Do you have trouble paying for medicines?: No Do you have trouble getting transportation to medical appointments?: No Do you have trouble paying your heating and electricity bill?: No Do you have trouble taking care of your child, family member or friend?: No Do you have trouble with day-to-day activities such as bathing, preparing meals, shopping, managing finances, etc.?: No Are you currently unemployed and looking for a job?: No Are you interested in more education?: No Please select the resources that you would like help with: None Currently or been in a relationship where the following occur: No concerns reported THRIVE Score: 0 AUDIT C Alcohol Use Questionnaire (AUDIT-C) 1. How often do you have a drink containing alcohol?: Never 3. How often do you have six or more drinks on one occasion?: Never Total Score: 0 Score Reviewed/Action Taken: Yes MAGALY-7 AMB Questionnaire MAGALY-7 Date MAGALY - 7 assessed: 03/01/25 Feeling nervous, anxious, or on edge: 0 = Not at all Not being able to stop or control worryin = Not at all Worrying too much about different things: 0 = Not at all Trouble relaxin = Not at all Being so restless that it is hard to sit still: 0 = Not at all Becoming easily annoyed or irritable: 0 = Not at all Feeling afraid as if something awful might happen: 0 = Not at all Total MAGALY-7 score (0-4 normal; 5-9 mild; 10-14 moderate; 15-21 severe): 0 Source: Developed by Drs. James Jalloh, Francine Landeros, Kaz Parker and colleagues, with an educational hannah from [employer]. Review of Systems Const Denies chills, Denies fatigue, Denies fever(s) and Denies headache(s) ENT Denies dysphagia, Denies dizziness, Denies otalgia, Denies headache(s), Denies neck pain, Denies odynophagia and Denies sore throat Card Denies chest pain, Denies palpitations and Denies dyspnea Resp Denies chest congestion, Denies cough and Denies dyspnea GI Denies abdominal pain, Denies constipation, Denies dysphagia, Denies heartburn, Denies diarrhea, Denies nausea, Denies odynophagia and Denies vomiting Denies difficulty urinating, Denies dysuria, Denies nocturia and Denies urinary frequency Musc Denies back pain, Denies arthralgias and Denies neck pain Skin/Breast Denies rash Neuro Denies dizziness and Denies headache(s) Psych Denies anxiety and Denies depression Endo Denies fatigue and Denies palpitations Physical exam (Primary Care) Vital Signs: Last Vital Signs Pulse 90 03/01/25 11:09 BP 120/86 03/01/25 11:09 Pulse Ox 96 03/01/25 11:09 Oxygen Delivery Method Room Air 03/01/25 11:09 BMI result Body Mass Index 43.1 Tobacco/Smoking Status: Tobacco use Status Tobacco use date assessed 03/01/25 03/01/25 11:13 Patient Tobacco Use Status Former Tobacco user 03/01/25 11:13 e-Cigarette/Vaping Use Never Used 03/01/25 11:13 PHQ-9: PHQ-9 Score PHQ-9: Total score 0 03/01/25 11:54 Depression Screening Interpretation: Negative Thrive Assessment: Date of Thrive Assessment Date Thrive assessed 03/01/25 03/01/25 11:13 Currently or been in a relationship where the following occur: No concerns reported Const General: no acute distress and alert HENMT Ears: TM's normal bilaterally and EAC's normal Throat: Yes posterior oropharynx normal and Yes tonsils normal (no TP congestion) Neck Neck: Yes supple and No lymphadenopathy Thyroid: Thyroid normal Resp Auscultation: clear to auscultation bilaterally, no rales and no wheezes Cardio Rate: regular rate Rhythm: regular rhythm Heart sounds: no murmurs GI Palpation (GI): Soft to palpation and nontender Auscultation: normal bowel sounds General: Yes no CVA tenderness Back/Spine/Pelvis Back: no CVA tenderness Thoracic/Lumbar Spine: No lumbar spinal tenderness Skin Rashes: no rashes Extrem General: Yes no clubbing, cyanosis or edema Results Reviewed Results Reviewed: Laboratory Tests 09/27/24 09:47 WBC 4.7 L Hgb 15.8 Hct 44.4 Plt Count 178 Sodium 139 Potassium 3.9 Creatinine 0.75 Estimated GFR > 60 Fasting Glucose 97 Calcium 9.0 AST 30 ALT 26 C-Reactive Protein 0.12 Triglycerides 98 Cholesterol 132 LDL Cholesterol, Calc 77 HDL Cholesterol 36 L 25-OH Vitamin D Total 55.1 TSH 1.11 Ur Specific [place] <= 1.005 Urine Protein Negative Urine Glucose (UA) Negative Urine Blood Negative Urine Nitrite Negative Ur Leukocyte Esterase Negative Lamotrigine 5.3 Rheumatoid Factor < 13.0 OLAF Screen POSITIVE A OLAF Titer 1:160 H Complement C3 145 Complement C4 29 Coding Level of Care Code Est Pt Level 4 (49596) Diagnoses Altered taste R43.2 Dyslipidemia E78.5 Neuropathy G62.9 Obstructive sleep apnea G47.33 Bipolar depression F31.9 Morbid obesity with BMI of 40.0-44.9, adult E66.01; Z68.41 Additional Codes PHQ-9 - 22578 - PHQ-9 Billing: Yes ([id number]) Assessment & Plan Assessment & Plan (1) Altered taste: Code(s): R43.2 - [facility] Category: Medical Plan: Patient's physical examination so far have not yielded any positive or pertinent findings that would help explain his described symptoms, which are very vague begin with and do not appear to have any physical basis We previously did some comprehensive labs but her labs also failed to provide any revealing results Patient was concerned about the possibility of some chemical exposure as the source of his tongue symptoms but the ones he described were quite vague and unlikely Will now refer him to ENT for further evaluation and management (2) Dyslipidemia: Code(s): E78.5 - Hyperlipidemia, unspecified Category: Medical Plan: Results of his labs done back in September 2024 reviewed and discussed with yandel miller His cholesterol numbers are mostly within acceptable range with the exception of his HDL cholesterol, which remains low (3) Neuropathy: Code(s): G62.9 - Polyneuropathy, unspecified Category: Medical Plan: He was seen by neurology in May 2022 and advised that his symptoms are likely related to his cervical spine issues - (+) cervical spondylosis Cervical spine MRI done in 09/2021 revealed (+) multilevel degenerative disc disease with facet joint arthropathy and mild to moderate foraminal narrowing at C5-C6 and C6-C7 levels EMG and NCV of the upper extremities done back on 08/04/2021 revealed 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, with normal EMG in the right C5-T1 innervated muscles Follow up with neurology as scheduled (4) Obstructive sleep apnea: Code(s): G47.33 - Obstructive sleep apnea (adult) (pediatric) Category: Medical Plan: Home sleep study done a couple of years ago showed (+) mild DARRYL and lowest oxygen level at night was at 87% Auto-CPAP trial at home was recommended but patient decided not to pursue this - would like to continue to try to lose weight and have this reassessed later on when he is able to get his weight down significantly (5) Bipolar depression: Code(s): F31.9 - Bipolar disorder, unspecified Category: Medical Plan: Continue Seroquel 200 mg twice a day (morning and at bedtime) and Lamictal Tablet 200 mg BID Follow up with psychiatry as scheduled (6) Morbid obesity with BMI of 40.0-44.9, adult: Code(s): E66.01 - Morbid (severe) obesity due to excess calories; Z68.41 - Body mass index [BMI] 40.0-44.9, adult Category: Medical Plan: Reinforced diet/exercise as tolerated/lose weight Plan Follow up in 6 months Orders: Orders Comprehensive [place]. Panel Fast 6 Months E78.00 - Pure hypercholesterolemia, unspecified Lipid Panel 6 Months E78.00 - Pure hypercholesterolemia, unspecified Vitamin D 25-OH Total 6 Months E55.9 - Vitamin D deficiency, unspecified Complete Blood Count Auto Diff 6 Months D64.9 - Anemia, unspecified TSH reflex Free T4 6 Months E78.00 - Pure hypercholesterolemia, unspecified UA CC w/rflx Micro + Cult 6 Months R30.0 - Dysuria Lamotrigine Lamictal 6 Months F31.9 - Bipolar disorder, unspecified Referrals Ear/Nose/Throat Referral R43.2 - [facility]
--- OUTSIDE RECORDS SUMMARY | 2025-03-01 13:16 | XMS_ITS | Clinical Summary ---
Author Organization [facility] Address [address] [place] [id number] Phone Care Team Providers Care Evening Or Night Nurse Supervisor Name Role Phone Nithin Crump MD Primary Care Provider [phone] Allergies Active Allergy Reactions Criticality Noted Date Comments Tree And Shrub Pollen Sneezing Low 07/26/2024 Social History Tobacco Use Types Packs/Day Years Used Date Smoking Tobacco: Never Assessed Education Answer Date Recorded Are you interested in more education? Not on milady e 03/05/2023 Are you concerned about learning? Not on file 03/05/2023 No 03/05/2023 No 03/05/2023 Digital Access Answer Date Recorded No 04/03/2023 No 04/03/2023 No 04/03/2023 Reliable internet access at home? Not on file 04/03/2023 Device with a working camera? Not on file Intimate Partner Violence Answer Date R ecorded Are you denied basic needs s uch as food, clothing, or medical care? No 07/26/2024 In the past 12 months have y ou been in a relationship with a person who hurts, threatens, or tries to control you? No 07/26/2024 Are you denied basic needs s uch as food, clothing, or medical care? No 07/26/2024 In the past 12 months have y ou been in a relationship with a person who hurts, threatens, or tries to control you? No 07/26/2024 Sex and Gender Information Value Date Recorded Sex Assigned at Not on file Gender Identity Not on file Sexual Orientation Not on file Last Filed Vital Signs Vital Sign Reading Time Taken Comments Blood Pressure 148/84 07/26/2024 6:28 PM EDT Pulse 68 07/26/2024 6:28 PM EDT Temperature 36.7 ??C (98.1 ??F) 07/26/2024 6:28 PM ED T Respiratory Rate 16 07/26/2024 6:28 PM EDT Oxygen Saturation 97% 07/26/2024 6:28 PM EDT Inhaled Oxygen Concentration - - Weight 113.4 kg (250 lb) 07/26/2024 6:28 PM EDT Height 175.3 cm (5' 9 ) 07/26/2024 6:28 PM EDT Body Mass Index 36.92 07/26/2024 6:28 PM EDT Plan of Treatment Health Maintenance Due Date Last Done Comments LIPID PANEL 1970 DEPRESSION SCREENING 1982 SMOKING Hx and SMOKELESS TOBACCO SCREENING 1983 HEPATITIS C SCREENING 1988 HIV ONE-TIME SCREENING (18-6 5 YEARS) 1988 COLOGUARD 2015 COLONOSCOPY 2015 COLORECTAL CANCER SCREENING 2015 FIT TEST 2015 FOBT 2015 SIGMOIDOSCOPY 2015 VIRTUAL COLONOSCOPY 2015 PNEUMOCOCCAL VACCINES (50+ years) (1 of 1 - PCV) 2020 SCREENING FOR DIABETES 09/19/2023 09/19/2020 COVID-19 VACCINE (3 - 2023-2 5 season) 2024 02/23/2021, 02/01/2021 Adult Td,Tdap Booster 08/18/2027 08/18/2017 ZOSTER VACCINES Completed 01/09/2021, 11/06/2020 HEPATITIS A VACCINES Aged Out No long er eligible based on patient's age to complete this topic HIB VACCINES Aged Out No longer eligi ble based on patient's age to complete this topic MENINGOCOCCAL VACCINES (ACWY) Aged Out No longer eligible based on patient's age to complete this topic Medical Devices Not on file Care Teams Evening Or Night Nurse Supervisor Relationship Specialty Start Date End Date Nithin Crump MD [address] [place] [address] [address] [place] [address] PCP - General Internal Medicine 09/19/20 Additional Source Comments The information contained in this document represents components of the legal health record. It is not the complete legal health record.[facility]
== END 2025-03-01 12:22 | disposition home or self-care (01) ==
LOC: HO.HMCH 11:08
PROVIDERS: PCP Internal Medicine; Visit Provider Internal Medicine
DX: R43.2 Parageusia (principal); F31.9 Bipolar disorder, unspecified; E66.01 Morbid (severe) obesity due to excess calories; Z68.41 Body mass index [BMI] 40.0-44.9, adult; E78.5 Hyperlipidemia, unspecified; G62.9 Polyneuropathy, unspecified; G47.33 Obstructive sleep apnea (adult) (pediatric)

== ENCOUNTER → 2025-03-01 11:08 | Outpatient (BNVA) | payer OTHER, SELFPAY | PROVIDERS: PCP Internal Medicine; Visit Provider Internal Medicine | DX: R43.2 Parageusia (principal); G62.9 Polyneuropathy, unspecified; G47.33 Obstructive sleep apnea (adult) (pediatric); F31.9 Bipolar disorder, unspecified; E78.00 Pure hypercholesterolemia, unspecified; E55.9 Vitamin D deficiency, unspecified; D64.9 Anemia, unspecified; E66.01 Morbid (severe) obesity due to excess calories; Z68.41 Body mass index [BMI] 40.0-44.9, adult | CPT/HCPCS: 96127; 99212 ==

== ENCOUNTER 2025-04-12 11:29 | Outpatient (AMB) | payer OTHER, SELFPAY ==
--- NOTE | 2025-04-12 11:48 | MHC.OFFWIV ---
Intake Vital Signs 04/12/25 11:50 04/12/25 12:16 Height 5 ft 8 in Weight 285 lb 4 oz BMI 43.4 BP 124/88 110/70 Blood Pressure Location Lt brachial Lt brachial Position Sitting Sitting Pulse 102 H Pulse Source Pulse Oximeter Temp 98.2 F Temp Source Oral Pulse Oximetry (%) 97 Oxygen Delivery Method Room Air Intake Visit Reasons: EP-back of lt arm tick bite Intake Note: Pt presents to the office today for a tick bite on his left arm. Pt states he noticed the tick on Wednesday and removed it. Patient Tobacco Use Status: Former Tobacco user Allergies amoxicillin Allergy (Unknown, Verified 04/12/25 11:52) rash pollen extracts [POLLEN] Allergy (Unknown, Verified 04/12/25 11:52) RESPIRATORY HPI HPI Comments History of Present Illness Details History of Present Illness - The patient is a 54-year-old male presenting with concerns following a recent tick bite. - The tick was reportedly not engorged at the time of removal, which suggests there was no prolonged attachment, although the exact duration is uncertain. - The patient noted localized redness and tenderness at the site of the bite on the left upper arm, without fevers or joint pain Physical Exam General: Cooperative, healthy appearing, comfortable, no acute distress and well developed Orientation: Patient oriented x3 Limitations: No limitations Head: Normal to inspection Ears: Hearing grossly normal bilaterally Nose: Normal External nose present Face and sinus: Normal facial exam Eyes: Appearance normal, both eyes and all related structures Neck: Normal visual inspection and Yes full ROM Respiratory: Normal respiratory effort and able to speak in complete sentences. Skin: left upper posterior arm with pinpoint scab and surrounding erythema, NOT EM rash, no warmth noted Neuro: Patient oriented x3 Extremities: Normal to inspection [facility] Medical History Morbid obesity with BMI of 40.0-44.9, adult Cervical spondylosis Dyspnea Knee pain, bilateral Obesity (BMI 30-39.9) Bipolar depression Obstructive sleep apnea Dyslipidemia Surgical History Status post phlebectomy History of nasal surgery History of prostate surgery Family History Father Medical history unknown Mother ALS (amyotrophic lateral sclerosis) Sister No problems noted. Social History Housing: Apartment Alcohol intake: former Patient Tobacco Use Status: Former Tobacco user e-Cigarette/Vaping Use: Never Used Second Hand Smoke Exposure: Yes service: No Current occupational status: disabled Cognitive needs: No Hearing needs: No Vision needs: No Review of Systems Const All systems reviewed & are unremarkable except as noted in HPI and below Physical Exam Vital Signs: Last Vital Signs Temp 98.2 F 04/12/25 11:50 Pulse 102 H 04/12/25 11:50 BP 124/88 04/12/25 11:50 Pulse Ox 97 04/12/25 11:50 Oxygen Delivery Method Room Air 04/12/25 11:50 BMI result Body Mass Index 43.4 Assessment & Plan Assessment & Plan (1) Tick bite of left upper arm: Code(s): S40.862A - Insect bite (nonvenomous) of left upper arm, initial encounter; W57.XXXA - Bitten or stung by nonvenomous insect and other nonvenomous arthropods, initial encounter Qualifiers: Encounter type: initial encounter Qualified Code(s): S40.862A - Insect bite (nonvenomous) of left upper arm, initial encounter; W57.XXXA - Bitten or stung by nonvenomous insect and other nonvenomous arthropods, initial encounter Plan: Plan - Initiated prophylactic treatment with a single 200 mg dose of doxycycline in response to the tick bite to decrease the potential risk for Lyme disease. - Patient educated on monitoring for erythema migrans rash and systemic symptoms such as fever and joint pain, with instructions to return if symptoms occur. - Explicitly provided guidance on recognizing and responding to symptoms possibly indicative of Lyme disease. Patient was informed and verbally consented to the use of an ambient scribe for clinic note documentation during this visit. Medications: New doxycycline hyclate 200 mg (2 x 100 mg) PO once 2 tabs 0RF tick bite ppx Coding Level of Care Code Est Pt Level 3 (56600) Diagnoses Tick bite of left upper arm, initial encounter S40.862A; W57.XXXA Encounter type: initial encounter
[2025-04-12 11:50] VITALS: BP 124/88; PULSE 102; TEMP 36.8; O2SAT 97; BMI 43.4
[2025-04-12 12:16] VITALS: BP 110/70
== END 2025-04-12 12:29 | disposition home or self-care (01) ==
PROVIDERS: PCP Internal Medicine; Visit Provider Physician Assistant
DX: S40.862A Insect bite (nonvenomous) of left upper arm, initial encounter (principal); W57.XXXA Bitten or stung by nonvenomous insect and other nonvenomous arthropods, initial encounter

== ENCOUNTER → 2025-04-12 11:29 | Outpatient (BNVA) | payer OTHER, SELFPAY | PROVIDERS: PCP Internal Medicine; Visit Provider Physician Assistant | DX: S40.862A Insect bite (nonvenomous) of left upper arm, initial encounter (principal); W57.XXXA Bitten or stung by nonvenomous insect and other nonvenomous arthropods, initial encounter | CPT/HCPCS: 99212 ==

== ENCOUNTER 2025-05-21 09:32 | Outpatient (REF) | payer OTHER, SELFPAY ==
[2025-05-21 14:42] LABS: Resp Syncy Virus RNA Qual PCR NEGATIVE (Negative); SARS COV2 PCR INHOUSE NEGATIVE (Negative)
== END 2025-05-21 09:33 | disposition home or self-care (01) ==
LOC: HO.LAB 09:32
PROVIDERS: PCP Internal Medicine; Visit Provider Nurse Practitioner Family
DX: J06.9 Acute upper respiratory infection, unspecified (principal); Z13.9 Encounter for screening, unspecified
CPT/HCPCS: 87637; 87880; 99212

== ENCOUNTER 2025-05-21 09:32 | Outpatient (AMB) | payer OTHER, SELFPAY ==
[2025-05-21 09:41] VITALS: BP 102/64; PULSE 75; TEMP 36.7; O2SAT 97; BMI 43.8
--- NOTE | 2025-05-21 09:41 | AM.OFFWIN_ITS ---
Intake Vital Signs 05/21/25 09:41 Height 5 ft 8 in Weight 288 lb BMI 43.8 BP 102/64 Blood Pressure Location Rt brachial Position Sitting Pulse 75 Pulse Source Pulse Oximeter Temp 98.0 F Temp Source Oral Pulse Oximetry (%) 97 Oxygen Delivery Method Room Air Intake Visit Reasons: EP Cough, throat irritation, mucus Intake Note: Patient present cough, congestion, both chest and nasal times 4 days Patient Tobacco Use Status: Former Tobacco user Radiology Services Manager Required: No Allergies amoxicillin Allergy (Unknown, Verified 05/21/25 09:45) rash pollen extracts (POLLEN) Allergy (Unknown, Verified 05/21/25 09:45) RESPIRATORY Do you need a note to return to daycare/school/sports/work: No HPI HPI Comments History of Present Illness Details 54 y/o Male patient who presents to the walk in clinic with c/o Cough and chest congestion for 4 days now. Denies fevers, chills, nausea or vomiting. [facility] Medical History (Updated 05/21/25 @ 10:33 by Sharonda Banerjee NP) Acute respiratory disease Cough Morbid obesity with BMI of 40.0-44.9, adult Cervical spondylosis Dyspnea Knee pain, bilateral Obesity (BMI 30-39.9) Bipolar depression Obstructive sleep apnea Dyslipidemia Surgical History Status post phlebectomy History of nasal surgery History of prostate surgery Family History Father Medical history unknown Mother ALS (amyotrophic lateral sclerosis) Sister No problems noted. Social History Housing: Apartment Alcohol intake: former Patient Tobacco Use Status: Former Tobacco user e-Cigarette/Vaping Use: Never Used Second Hand Smoke Exposure: Yes service: No Current occupational status: disabled Cognitive needs: No Hearing needs: No Vision needs: No Review of Systems Const All systems reviewed & are unremarkable except as noted in HPI and below Physical Exam Vital Signs: Last Vital Signs Temp 98.0 F 05/21/25 09:41 Pulse 75 05/21/25 09:41 BP 102/64 05/21/25 09:41 Pulse Ox 97 05/21/25 09:41 Oxygen Delivery Method Room Air 05/21/25 09:41 BMI result Body Mass Index 43.8 Const General: no acute distress Nutritional Appearance: obese Orientation/consciousness: patient oriented x3 HEENT Head: Yes normocephalic Ears: external ears normal and TM abnormal with fluid behind the TM bilateral General nose exam: Normal external nose present Face and sinus: Yes sinuses nontender Mouth: moist mucous membranes and Abnormal oral and palatal mucosa present white patches Throat: Yes uvula midline Resp Effort & Inspection: normal respiratory effort Cardio Heart sounds: S1 normal heart sound present and S2 normal heart sound present Neuro General: patient oriented x3 Assessment & Plan Assessment & Plan (1) Cough: Code(s): R05.9 - Cough, unspecified Qualifiers: Cough type: acute Qualified Code(s): R05.1 - Acute cough Plan: Ordered SARs Rapid Strep Negative (2) Acute respiratory disease: Code(s): J06.9 - Acute upper respiratory infection, unspecified Plan: Ordered SARs Ordered Allergy medication. Orders: Orders AMB Rapid Strep Screen Today Leonarda Pearson PA-C Z13.9 - Encounter for screening, unspecified SARS-CoV2/FLU/RSV Today Sharonda Banerjee NP J06.9 - Acute upper respiratory infection, unspecified Medications: New cetirizine (Zyrtec) 10 mg PO DAILY 30 tabs 0RF Sharonda Banerjee NP J06.9 - Acute upper respiratory infection, unspecified, R05.1 - Acute cough oxymetazoline 0.05% (Afrin (oxymetazoline)) 2 sprays intranasal Q12H PRN 22 mL 0RF nasal congestion 3 days Sharonda Banerjee NP J06.9 - Acute upper respiratory infection, unspecified, R05.1 - Acute cough benzonatate 100 mg PO BID 60 caps 0RF Sharonda Banerjee NP R05.1 - Acute cough Coding Level of Care Code Est Pt Level 4 (01004) Diagnoses Acute cough R05.1 Cough type: acute Acute respiratory disease J06.9 Time Spent (min) 20
== END 2025-05-21 10:42 | disposition home or self-care (01) ==
PROVIDERS: PCP Internal Medicine; Visit Provider Nurse Practitioner Family
DX: R05.1 Acute cough (principal); J06.9 Acute upper respiratory infection, unspecified; Z13.9 Encounter for screening, unspecified

== ENCOUNTER 2025-08-29 13:37 | Outpatient (AMB) | payer OTHER, SELFPAY ==
[2025-08-29 13:38] VITALS: BP 110/90; PULSE 84; O2SAT 98; BMI 43.7
--- NOTE | 2025-08-29 13:38 | A.OFFPC_ITS ---
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: No Accompanied by: Self / Same As Patient Allergies amoxicillin Allergy (Unknown, Verified 08/29/25 14:17) rash pollen extracts (POLLEN) Allergy (Unknown, Verified 08/29/25 14:17) RESPIRATORY Medication List - Last Reconciled 08/29/25 by Nithin Crump MD lamotrigine 200 mg PO BID quetiapine 200 mg PO BID Tobacco use date assessed: 08/29/25 Dental Screening Dental Screen Date: 08/29/25 Did you have a dental visit in the last 12 months?: Yes Did you have a dental problem in the last 6 months where you did not have access to dental care?: No Was dental information given to patient?: Patient has dentist HPI 6 month f/u HPI Details Patient comes in today for his follow up visit States that he feels okay He denies any headaches or dizziness Denies any chest pains, no increased shortness of breath No nausea/vomiting, no abdominal pain No change in bowel habits noted He has not gotten his follow-up labs done yet - states that he will try to get these done [facility] Medical History (Updated 08/29/25 @ 14:19 by Nithin Crump MD) Cough Morbid obesity with BMI of 40.0-44.9, adult Cervical spondylosis Dyspnea Knee pain, bilateral Obesity (BMI 30-39.9) Bipolar depression Obstructive sleep apnea Dyslipidemia Surgical History Status post phlebectomy History of nasal surgery History of prostate surgery Family History Father Medical history unknown Mother ALS (amyotrophic lateral sclerosis) Sister No problems noted. Social History Housing: Apartment Alcohol intake: former Patient Tobacco Use Status: Former Tobacco user e-Cigarette/Vaping Use: Never Used Second Hand Smoke Exposure: Yes service: No Current occupational status: disabled Cognitive needs: No Hearing needs: No Vision needs: No Questionnaire PHQ-9 Over the last 2 weeks, how often have you been bothered by any of the following problems? 1. Little interest or pleasure in doing things: several days 2. Feeling down, depressed, or hopeless: not at all 3. Trouble falling or staying asleep, or sleeping too much: not at all 4. Feeling tired or having little energy: several days 5. Poor appetite or overeating: several days 6. Feeling bad about yourself - or that you are a failure or have let yourself or your family down: not at all 7. Trouble concentrating on things, such as reading the newspaper or watching television: not at all 8. Moving or speaking so slowly that other people could have noticed. Or the opposite - being so fidgety or restless that you have been moving around a lot more than usual: not at all 9. Thoughts that you would be better off or of hurting yourself in some way: not at all Total score: 3 Depression Screening Interpretation: Positive Depression Screening Follow-up: Existing condition and In treatment Depression Screening Done: Yes 06018 - PHQ-9 Billing: Yes Source: Developed by Drs. James Jalloh, Francine Landeros, Kaz Parker and colleagues, with an educational hannah from [employer]. Thrive Questionnaire Date Thrive assessed: 08/29/25 I am a: Patient What is your living situation today?: I have a steady place to live Within the past 12 months, did the food you bought not last and you didn't have the money to get more?: I choose not to answer this question Within the past 12 months, did you worry whether your food would run out before you got money to buy more?: I choose not to answer this question Do you have trouble paying for medicines?: No Do you have trouble getting transportation to medical appointments?: No Do you have trouble paying your heating and electricity bill?: No Do you have trouble taking care of your child, family member or friend?: No Do you have trouble with day-to-day activities such as bathing, preparing meals, shopping, managing finances, etc.?: No Are you currently unemployed and looking for a job?: I choose not to answer this question Are you interested in more education?: Yes Please select the resources that you would like help with: Housing/Detention, Daily support, Job search/training and Education Currently or been in a relationship where the following occur: I choose not to answer THRIVE Score: 0 AUDIT C Alcohol Use Questionnaire (AUDIT-C) 1. How often do you have a drink containing alcohol?: Never 3. How often do you have six or more drinks on one occasion?: Never Total Score: 0 Score Reviewed/Action Taken: Yes MAGALY-7 AMB Questionnaire MAGALY-7 Date MAGALY - 7 assessed: 03/01/25 Feeling nervous, anxious, or on edge: 0 = Not at all Not being able to stop or control worryin = Not at all Worrying too much about different things: 0 = Not at all Trouble relaxin = Not at all Being so restless that it is hard to sit still: 0 = Not at all Becoming easily annoyed or irritable: 0 = Not at all Feeling afraid as if something awful might happen: 0 = Not at all Total MAGALY-7 score (0-4 normal; 5-9 mild; 10-14 moderate; 15-21 severe): 0 Source: Developed by Drs. James Jalloh, Francine Landeros, Kaz Parker and colleagues, with an educational hannah from [employer]. Review of Systems Const Denies chills, Denies fatigue, Denies fever(s) and Denies headache(s) ENT Denies dysphagia, Denies dizziness, Denies otalgia, Denies headache(s), Denies neck pain, Denies odynophagia and Denies sore throat Card Denies chest pain, Denies palpitations and Denies dyspnea Resp Denies chest congestion, Denies cough and Denies dyspnea GI Denies abdominal pain, Denies constipation, Denies dysphagia, Denies heartburn, Denies diarrhea, Denies nausea, Denies odynophagia and Denies vomiting Denies difficulty urinating, Denies dysuria, Denies nocturia and Denies urinary frequency Musc Denies back pain, Denies arthralgias and Denies neck pain Skin/Breast Denies rash Neuro Denies dizziness and Denies headache(s) Psych Denies anxiety and Denies depression Endo Denies fatigue and Denies palpitations Physical exam (Primary Care) Vital Signs: Last Vital Signs Pulse 84 08/29/25 13:38 BP 128/84 08/29/25 14:23 Pulse Ox 98 08/29/25 13:38 Oxygen Delivery Method Room Air 08/29/25 13:38 BMI result Body Mass Index 43.7 Tobacco/Smoking Status: Tobacco use Status Tobacco use date assessed 08/29/25 08/29/25 13:45 Patient Tobacco Use Status Former Tobacco user 08/29/25 13:45 e-Cigarette/Vaping Use Never Used 08/29/25 13:45 PHQ-9: PHQ-9 Score PHQ-9: Total score 3 08/29/25 14:19 Depression Screening Interpretation: Positive Depression Screening Follow-up: Ex isting condition and In treatment Thrive Assessment: Date of Thrive Assessment Date Thrive assessed 03/01/25 08/29/25 13:45 Currently or been in a relationship where the following occur: I choose not to answer Const General: no acute distress and alert HENMT Ears: TM's normal bilaterally and EAC's normal Throat: Yes posterior oropharynx normal and Yes tonsils normal (no TP congestion) Neck Neck: Yes supple and No lymphadenopathy Thyroid: Thyroid normal Resp Auscultation: clear to auscultation bilaterally, no rales and no wheezes Cardio Rate: regular rate Rhythm: regular rhythm Heart sounds: no murmurs GI Palpation (GI): Soft to palpation and nontender Auscultation: normal bowel sounds General: Yes no CVA tenderness Back/Spine/Pelvis Back: no CVA tenderness Thoracic/Lumbar Spine: No lumbar spinal tenderness Skin Rashes: no rashes Extrem General: Yes no clubbing, cyanosis or edema Coding Level of Care Code Est Pt Level 4 (23442) Diagnoses Dyslipidemia E78.5 Neuropathy G62.9 Obstructive sleep apnea G47.33 Bipolar depression F31.9 Morbid obesity with BMI of 40.0-44.9, adult E66.01; Z68.41 Additional Codes PHQ-9 - 65122 - PHQ-9 Billing: Yes ([id number]) Assessment & Plan Assessment & Plan (1) Dyslipidemia: Code(s): E78.5 - Hyperlipidemia, unspecified Category: Medical Plan: Patient was not able to get his labs done prior to coming in for his appointment today and states that he will try to get these done PRASHANTH Reinforce low-cholesterol diet Will have him recheck his labs and fasting lipids in 6 months for follow-up (2) Neuropathy: Code(s): G62.9 - Polyneuropathy, unspecified Category: Medical Plan: He was seen by neurology in May 2022 and advised that his upper extremity symptoms are likely related to his cervical spine issues - (+) cervical spondylosis Cervical spine MRI done in 09/2021 revealed (+) multilevel degenerative disc disease with facet joint arthropathy and mild to moderate foraminal narrowing at C5-C6 and C6-C7 levels EMG and NCV of the upper extremities done back on 08/04/2021 revealed 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, with normal EMG in the right C5-T1 innervated muscles Follow up with neurology as scheduled (3) Obstructive sleep apnea: Code(s): G47.33 - Obstructive sleep apnea (adult) (pediatric) Category: Medical Plan: Home sleep study done a couple of years ago showed (+) mild DARRYL and lowest oxygen level at night was at 87% Auto-CPAP trial at home was recommended but patient decided not to pursue this - he would like to continue to try to lose weight and have this reassessed later on when he is able to get his weight down significantly (4) Bipolar depression: Code(s): F31.9 - Bipolar disorder, unspecified Category: Medical Plan: Continue Seroquel 200 mg twice a day (morning and at bedtime) and Lamictal Tablet 200 mg BID Follow up with psychiatry as scheduled (5) Morbid obesity with BMI of 40.0-44.9, adult: Code(s): E66.01 - Morbid (severe) obesity due to excess calories; Z68.41 - Body mass index [BMI] 40.0-44.9, adult Category: Medical Plan: Reinforced diet/exercise as tolerated/lose weight Plan To return in 6 months for his next annual physical examination Orders: Orders Comprehensive [place]. Panel Fast 6 Months E78.00 - Pure hypercholesterolemia, uns pecified, Z00.00 - Encounter for general adult medical examination without abnormal findings Lipid Panel 6 Months E78.00 - Pure hypercholesterolemia, unspecified, Z00.00 - Encounter for general adult medical examination without abnormal findings Complete Blood Count Auto Diff 6 Months D64.9 - Anemia, unspecified, Z00.00 - Encounter for general adult medical examination without abnormal findings Prostate Specific Antigen Scr 6 Months Z00.00 - Encounter for general adult medical examination without abnormal findings TSH reflex Free T4 6 Months E78.00 - Pure hypercholesterolemia, unspecified, Z00.00 - Encounter for general adult medical examination without abnormal findings UA CC w/rflx Micro + Cult 6 Months R30.0 - Dysuria, Z00.00 - Encounter for general adult medical examination without abnormal findings Vitamin D 25-OH Total 6 Months E55.9 - Vitamin D deficiency, unspecified, Z00.00 - Encounter for general adult medical examination without abnormal findings
[2025-08-29 14:23] VITALS: BP 128/84
== END 2025-08-29 14:31 | disposition home or self-care (01) ==
LOC: HO.HMCH 13:37
PROVIDERS: PCP Internal Medicine; Visit Provider Internal Medicine
DX: E78.5 Hyperlipidemia, unspecified (principal); F31.9 Bipolar disorder, unspecified; E66.01 Morbid (severe) obesity due to excess calories; Z68.41 Body mass index [BMI] 40.0-44.9, adult; G62.9 Polyneuropathy, unspecified; G47.33 Obstructive sleep apnea (adult) (pediatric)

== ENCOUNTER → 2025-08-29 13:37 | Outpatient (BNVA) | payer OTHER, SELFPAY | PROVIDERS: PCP Internal Medicine; Visit Provider Internal Medicine | DX: G47.33 Obstructive sleep apnea (adult) (pediatric) (principal); G62.9 Polyneuropathy, unspecified; F31.9 Bipolar disorder, unspecified; E66.01 Morbid (severe) obesity due to excess calories; E78.00 Pure hypercholesterolemia, unspecified; D64.9 Anemia, unspecified; R30.0 Dysuria; E55.9 Vitamin D deficiency, unspecified; Z68.41 Body mass index [BMI] 40.0-44.9, adult | CPT/HCPCS: 96127; 99212 ==

== ENCOUNTER 2025-08-31 10:10 | Outpatient (REF) | payer OTHER, SELFPAY ==
--- OUTSIDE RECORDS SUMMARY | 2025-08-31 11:34 | XMS_ITS | Clinical Summary ---
Author Organization [facility] Address [address] [place] [id number] Phone Care Team Providers Care Seeing Eye Dog Teacher Name Role Phone Nithin Crump MD Primary Care Provider [phone] Allergies Active Allergy Reactions Criticality Noted Date [...] Recorded Sex Assigned at Not on file Legal Sex Male 11:49 AM EST Gender Identity Not on file Sexual Orientation Not on file Last Filed Vital Signs Vital Sign Reading Time Taken Comments Blood Pressure 148/84 07/26/2024 6:28 PM EDT Pulse 68 07/26/2024 6:28 PM EDT Temperature 36.7 C (98.1 F) 07/26/2024 6:28 PM EDT Respiratory Rate 16 07/26/2024 6:28 PM EDT [...] HEPATITIS C SCREENING 1988 HIV ONE-TIME SCREENING (18-65 YEARS) 1988 COLOGUARD 2015 COLONOSCOPY 2015 COLORECTAL CANCER SCREENING 2015 FIT TEST 2015 FOBT 2015 SIGMOIDOSCOPY 2015 VIRTUAL COLONOSCOPY 2015 PNEUMOCOCCAL VACCINES (50+ years) (1 of 1 - PCV) 2020 SCREENING FOR DIABETES 09/19/2023 09/19/2020 INFLUENZA VACCINE (#1) 2025 9, 08/22/2018, 09/29/2017, Additional history exists COVID-19 VACCINE ( season) 2025 02/23/2021, 02/01/2021 Adult Td,Tdap Booster 08/18/2027 08/18/2017 RSV VACCINE (1 - 1-dose 75+ series) 2045 ZOSTER VACCINES Completed 01/09/2021, 11/06/2020 HEPATITIS A VACCINES Aged Out No long er eligible based on patient's age to complete this topic HIB VACCINES Aged Out No longer eligi ble based on patient's age to complete this topic MENINGOCOCCAL VACCINES (ACWY) Aged Out No longer eligible based on patient's age to complete this topic MENINGOCOCCAL VACCINES (B) Aged Out N o longer eligible based on patient's age to complete this topic Medical Devices Not on file Insurance MEDICARE REPLACEMENT MEDICARE [place] [address] [address] MEDICARE REPLACEMENT MEDICARE REPLACEMENT [address] [place] [address] [place] [address] [address] [place] [address] [place] [place] [address] MEDICARE REPLACEMENT Care Teams Seeing Eye Dog Teacher Relationship Specialty Start Date End Date Nithin Crump MD [address] [place] [address] [place] [id number] PCP - General Internal Medicine 09/19/20 Additional Source Comments The information contained in this document represents components of the legal health record. It is not the complete legal health record.[facility]
[2025-08-31 13:20] LABS: MANUAL DIFF FLAG NO
[2025-08-31 13:34] LABS: Hematocrit 45.0 % (42.0-52.0); Hemoglobin 15.8 g/dl (14.0-18.0); Imm Gran Abs Auto 0.01 X10*3/uL (0.00-0.03); Imm Gran Pct Auto 0.2 % (0.0-0.4); Lymphocytes Absolute Auto 1.1 X10*3/uL (1.2-4.9); Mean Corpuscular HGB Conc 35.1 g/dl (31.0-36.0); Mean Corpuscular Hemoglobin 31.2 pg (27.0-33.0); Mean Corpuscular Volume 88.8 fL (80.0-98.0); NRBC Abs Auto 0.000 X10*3/uL (0.0-0.012); NRBC Pct Auto 0.0 /100WBC (0.0-0.2); Platelet Count 198 X10*3/uL (160-400); Red Blood Count 5.07 X10*6/uL (4.60-5.80); White Blood Count 5.3 X10*3/uL (4.8-10.8)
[2025-08-31 13:46] LABS: Appearance Urine Clear; Glucose Urine UA Negative (Negative); PH 6.0 (5.0-9.0); Specific Gravity - Urine <= 1.005 (1.005-1.025)
[2025-08-31 14:25] LABS: Alanine Aminotransferase 17 U/L (0-40); Albumin Level 4.9 g/dL (3.5-5.0); Alkaline Phosphatase 92 U/L (39-117); Anion Gap 9 (12-20); Aspartate Amino Transferase 23 U/L (5-37); Blood Urea Nitrogen 11 mg/dL (9-16); Calcium 9.5 mg/dL (8.4-10.2); Carbon Dioxide 25 mmol/L (22-29); Chloride 110 mmol/L (96-108); Cholesterol 147 mg/dL (<200); Estimated Glomerular Filt Rate > 60; HDL Cholesterol 40 mg/dL (>40); Potassium 3.9 mmol/L (3.3-5.1); Sodium 140 mmol/L (135-145); Total Protein 7.1 g/dL (6.5-8.0); Triglycerides 97 mg/dL (<150)
[2025-09-05 20:24] LABS: Lamotrigine Lamictal 5.1 mcg/mL (2.5-15.0)
== END 2025-08-31 10:11 | disposition home or self-care (01) ==
LOC: HO.HMGCLDS 10:10
PROVIDERS: PCP Internal Medicine; Visit Provider Internal Medicine
DX: R30.0 Dysuria (principal); E78.00 Pure hypercholesterolemia, unspecified; E55.9 Vitamin D deficiency, unspecified; D64.9 Anemia, unspecified; F31.9 Bipolar disorder, unspecified
CPT/HCPCS: 36415; 80053; 80061; 80175; 81003; 82306; 84443; 85025

== ENCOUNTER 2025-09-29 11:43 | Outpatient (AMB) | payer OTHER, SELFPAY ==
--- OUTSIDE RECORDS SUMMARY | 2025-09-29 11:46 | XMS_ITS | Clinical Summary ---
Author Organization [facility] Address [address] [place] [id number] Phone Care Team Providers Care Sports Trainer Name Role Phone Nithin Crump MD Primary Care Provider [phone] Allergies Active Allergy Reactions Criticality Noted Date [...] Devices Not on file Insurance MEDICARE [place] [address] [place] [address] [place] [place] [address] MEDICARE REPLACEMENT MEDICARE REPLACEMENT MEDICARE [place] [place] [address] MEDICARE REPLACEMENT [facility] MEDICARE [place]ACEMENT [place] [place] [address] [place] [place] [address] MEDICARE REPLACEMENT Care Teams Sports Trainer Relationship Specialty Start Date End Date Nithin Crump MD [address] [place] [address] [place] [address] PCP - General Internal Medicine 09/19/20 Additional Source Comments The information contained in this document represents components of the legal health record. It is not the complete legal health record.[facility]
[2025-09-29 11:48] VITALS: BP 92/60; PULSE 99; RESP 17; TEMP 36.7; O2SAT 96; BMI 43.6
--- NOTE | 2025-09-29 11:48 | MHC.OFFWIV ---
Intake Vital Signs 09/29/25 11:48 Height 5 ft 8 in Weight 287 lb BMI 43.6 BP 92/60 Blood Pressure Location Lt brachial Position Sitting Respiration 17 Pulse 99 Pulse Source Pulse Oximeter Temp 98.1 F Temp Source Oral Pulse Oximetry (%) 96 Oxygen Delivery Method Room Air Intake Visit Reasons: EP-Cold symptoms Intake Note: Pt is here today w/ cold sxs Patient Tobacco Use Status: Former Tobacco user Allergies amoxicillin Allergy (Unknown, Verified 08/29/25 14:17) rash pollen extracts (POLLEN) Allergy (Unknown, Verified 08/29/25 14:17) RESPIRATORY Medication List - Last Reconciled 09/29/25 by Medardo Morrison MD lamotrigine 200 mg PO BID quetiapine 200 mg PO BID HPI EP-Cold symptoms HPI Details patient has c/o chest and nasal congestion, coughing x 1 week no sick contacts no fevers or chill has not tried any medications for this [facility] Medical History (Updated 09/29/25 @ 12:18 by Medardo Morrison MD) Cough Morbid obesity with BMI of 40.0-44.9, adult Cervical spondylosis Dyspnea Knee pain, bilateral Obesity (BMI 30-39.9) Bipolar depression Obstructive sleep apnea Dyslipidemia Surgical History Status post phlebectomy History of nasal surgery History of prostate surgery Family History Father Medical history unknown Mother ALS (amyotrophic lateral sclerosis) Sister No problems noted. Social History Housing: Apartment Alcohol intake: former Patient Tobacco Use Status: Former Tobacco user e-Cigarette/Vaping Use: Never Used Second Hand Smoke Exposure: Yes service: No Current occupational status: disabled Cognitive needs: No Hearing needs: No Vision needs: No Review of Systems Narrative see HPI Physical Exam Vital Signs: Last Vital Signs Temp 98.1 F 09/29/25 11:48 Pulse 99 09/29/25 11:48 Resp 17 09/29/25 11:48 BP 92/60 09/29/25 11:48 Pulse Ox 96 09/29/25 11:48 Oxygen Delivery Method Room Air 09/29/25 11:48 BMI result Body Mass Index 43.6 Const General: no acute distress and well developed Nutritional Appearance: well nourished Orientation/consciousness: patient oriented x3 HEENT Other: mild nasal congestion no blood or pus posterior pharynx normal no LAD Head: Yes normocephalic and Yes atraumatic Eyes General: appearance normal, both eyes and all related structures Pupils: Equal, round and reactive pupils present EOM: EOMs intact bilaterally Resp Other: coarse breath sounds throughout lung with some secretions sounds. No diminished breath sounds Effort & Inspection: normal respiratory effort Auscultation: clear to auscultation bilaterally Cardio Rate: regular rate Rhythm: regular rhythm Heart sounds: S1 normal heart sound present, S2 normal heart sound present, no gallops, no murmurs and no rubs Neuro General: patient oriented x3 and gait normal Cranial nerves: Yes Equal, round and reactive pupils present Psych Affect: normal affect Assessment & Plan Assessment & Plan (1) Bronchitis: Code(s): J40 - Bronchitis, not specified as acute or chronic Plan: coarse breath sounds with chest congestion and cough sending script for cephalexin and prednisone. patient allergic to amoxicillin which causes rash only and also has had medication interactions with azithromycin, per patient (2) Viral illness: Code(s): B34.9 - Viral infection, unspecified Plan: no known sick contacts however can not rule out possible initial viral illness sending nasal swab to check for COVID/ flu /RSV Plan blood pressure is low today though patient does not feel dizzy or weak increase hydration and eat regular meals Orders: Orders SARS-CoV2/FLU/RSV Today B34.9 - Viral infection, unspecified Medications: New cephalexin 500 mg PO Q12H 20 caps 0RF 10 days prednisone 40 mg (2 x 20 mg) PO DAILY 10 tabs 0RF 5 days Coding Level of Care Code Est Pt Level 3 (85810) Diagnoses Bronchitis J40 Viral illness B34.9
== END 2025-09-29 12:26 | disposition home or self-care (01) ==
LOC: HO.HMCWIC 11:43
PROVIDERS: PCP Internal Medicine; Visit Provider Family Medicine
DX: J40 Bronchitis, not specified as acute or chronic (principal); B34.9 Viral infection, unspecified

== ENCOUNTER 2025-09-29 11:43 | Outpatient (REF) | payer OTHER, SELFPAY ==
[2025-09-29 15:51] LABS: Resp Syncy Virus RNA Qual PCR NEGATIVE (Negative); SARS COV2 PCR INHOUSE NEGATIVE (Negative)
== END 2025-09-29 11:44 | disposition home or self-care (01) ==
LOC: HO.LNP 11:43
PROVIDERS: PCP Internal Medicine; Visit Provider Family Medicine
DX: J40 Bronchitis, not specified as acute or chronic (principal); B34.9 Viral infection, unspecified; Z87.891 Personal history of nicotine dependence; R03.1 Nonspecific low blood-pressure reading
CPT/HCPCS: 87637; 99212